=== PATIENT | male | born 1960 | race Hispanic/Latino ===

== ENCOUNTER → 2020-03-05 | Outpatient (CLI) | payer SELFPAY | LOC: M LABSMTC 13:33 | PROVIDERS: ATTEND Pediatrics | DX: Z20.828 Contact with and (suspected) exposure to other viral communicable diseases (principal) ==

== ENCOUNTER → 2020-09-29 | Outpatient (CLI) | payer OTHER ==
--- NOTE | 2020-10-02 16:31 | SLEEPCENT ---
NOCTURNAL POLYSOMNOGRAPHY DATE: 09/29/2020 ORDERED BY: TONEY Marquez Nocturnal polysomnography was performed for evaluation of sleep physiology in this patient with a history suggesting obstructive sleep apnea syndrome. 8 hours and 4 minutes of data were reviewed. There were 422 minutes of sleep identified. Sleep latency was short at 2 minutes. REM latency was mildly delayed at 150 minutes. Sleep architecture improved late in the study with significant fragmentation early and three REM cycles were noted. Overall sleep efficiency was 88.7%. The electrocardiogram showed a sinus rhythm with an average heart rate of 68 beats per minute; rate range 50 to 80 beats per minute. EEG showed normal waveforms for wake and sleep. No focal events were identified. There were 217 respiratory events identified of 10 seconds in duration or greater for an apnea-hypopnea index of 30.9. The events were primarily obstructive, not exclusive to sleep stage, more frequent but not exclusive to the supine posture. Arousals from respiratory events occurred 6.7 times per hour and oxygen desaturations were seen into the 80ss. There was some minor limb activity and remaining measures of sleep physiology were normal. IMPRESSION: Obstructive sleep apnea syndrome (G47.33), apnea-hypopnea index 30.9. RECOMMENDATION: The patient should be encouraged to return to [facility]. In the interim, alcohol and sedative avoidance should be practiced and caution exercised during the operation of motor vehicles.
== END ==
LOC: M SLEEP 20:00
PROVIDERS: ATTEND Nurse Practitioner Family
DX: G47.33 Obstructive sleep apnea (adult) (pediatric) (principal)

== ENCOUNTER → 2021-04-10 | Outpatient (CLI) | payer OTHER | LOC: M RAD 10:14 | PROVIDERS: ATTEND Nurse Practitioner Family | DX: Z87.891 Personal history of nicotine dependence (principal) ==

== ENCOUNTER 2022-09-30 10:37 | Emergency (ER) | payer OTHER ==
[~2022-09-30] VITALS: Ht 167.6 cm; Wt 68.2 kg
[2022-09-30] MEDS ORDERED: ALBU90AE (10:48)
[2022-09-30] MEDS ORDERED: MELO15TA28 PO (10:49)
[2022-09-30 12:22] LABS: BASO # 0.1 10^3/uL (0.0-0.2); BASO % 1.3 % (0.0-1.0); EOS # 0.4 10^3/uL (0.0-0.5); EOS % 6.1 % (0.0-3.0); HEMATOCRIT 47.2 % (42.0-52.0); HEMOGLOBIN 16.3 g/dl (13.5-17.5); LYMPH # 2.3 10^3/uL (1.5-5.0); LYMPH % 33.7 % (24.0-44.0); MEAN CORPUSCULAR HEMOGLOBIN 29.6 pg (27.0-33.0); MEAN CORPUSCULAR HGB CONC 34.5 g/dl (32.0-36.5); MEAN CORPUSCULAR VOLUME 85.7 fl (80.0-96.0); MONO # 0.5 10^3/uL (0.0-0.8); MONO % 7.5 % (2.0-8.0); NEUTROPHILS # 3.4 10^3/uL (1.5-8.5); NEUTROPHILS % 51.4 % (36.0-66.0); PLATELET COUNT, AUTOMATED 252 10^3/uL (150-450); RED BLOOD COUNT 5.51 10^6/uL (4.30-6.10); WHITE BLOOD COUNT 6.7 10^3/uL (4.0-10.0)
[2022-09-30] MEDS ORDERED: methylPREDNISolone 125MG 2ML VIAL IV ONE (12:35)
[2022-09-30] MEDS ORDERED: IPRATROPIUM 0.5MG/ALBUTEROL 2.5MG INH SOL UD 3ML (DUONEB) NEB ONE (12:35)
[2022-09-30 12:46] LABS: ALBUMIN 4.1 G/DL (3.2-5.2); ALKALINE PHOSPHATASE 84 U/L (46-116); ALT/SGPT 27 U/L (7.0-40); AST/SGOT 17 U/L (<34); BILIRUBIN,DIRECT 0.2 MG/DL (<0.4); BILIRUBIN,TOTAL 0.7 MG/DL (0.3-1.2); BLOOD UREA NITROGEN 11 MG/DL (9-23); CALCIUM LEVEL 9.6 MG/DL (8.3-10.6); CARBON DIOXIDE LEVEL 25 MMOL/L (20-31); CHLORIDE LEVEL 108 MMOL/L (98-107); CREATININE FOR GFR 0.77 MG/DL (0.70-1.30); GLOMERULAR FILTRATION RATE > 60.0 (>49); GLUCOSE, FASTING 86 MG/DL (74-106); POTASSIUM SERUM 4.3 MMOL/L (3.5-5.1); SODIUM LEVEL 139 MMOL/L (136-145); TOTAL PROTEIN 7.2 G/DL (5.7-8.2)
[2022-09-30 12:55] LABS: RSV AMPLIFICATION NEGATIVE (NEGATIVE)
[2022-09-30 13:14] LABS: PROTHROMBIN TIME 12.3 SECONDS (12.5-14.5)
[2022-09-30 13:15] LABS: PARTIAL THROMBOPLASTIN TIME 30.7 SECONDS (24.8-34.2)
[2022-09-30] MEDS ORDERED: ISOVUE-370 76% 100ML VIAL As Ordered ONE (13:17)
[2022-09-30 13:28] LABS: D-DIMER QUANT < 270 ng/ml (<500)
[2022-09-30] MEDS ORDERED: ALBUTEROL SULFATE 2.5MG/0.5ML INH NEB SOLN NEB ONE (13:55)
[2022-09-30 14:05] LABS: CK-MB VALUE MASS 1.2 NG/ML (<3.6)
[2022-09-30 14:13] LABS: CPK CREATINE PHOSPHOKINASE 217 U/L (46-171); MB/CK RELATIVE INDEX 0.55 (< OR =4)
[2022-09-30] MEDS: MAG SULF 1GM/100ML (MAG RUN) 1 GM in IV 1 EA IV SCH ×2 (14:24→15:18)
[2022-09-30] MEDS ORDERED: PRED20TA PO (15:24)
[2022-09-30] MEDS ORDERED: ALBU2.5V10 NEB (15:33)
[2022-09-30 16:10] VITALS: BP 106/57; TEMP 98.5; O2SAT 97
== END 2022-09-30 16:20 | disposition home or self-care (01) ==
LOC: M ED 10:37
DX: J45.901 Unspecified asthma with (acute) exacerbation (principal); K76.89 Other specified diseases of liver; G47.33 Obstructive sleep apnea (adult) (pediatric); F17.200 Nicotine dependence, unspecified, uncomplicated; Z88.8 Allergy status to other drugs, medicaments and biological substances; Z79.899 Other long term (current) drug therapy
CPT/HCPCS: 71045; 71275; 80048; 80076; 82550; 82553; 84484; 85025; 85379; 85610; 85730; 87631; 93005; 94640; 96365; 96375; 99284; J2930; J3475; Q9967

== ENCOUNTER → 2022-11-04 | Outpatient (CLI) | payer OTHER ==
[~2022-11-04] MED LIST: ALBU2.5V10 NEB; ALBU90AE; MELO15TA28 PO; PRED20TA PO
== END ==
LOC: M PLAIMG 06:44
PROVIDERS: ATTEND Nurse Practitioner Family
DX: R93.89 Abnormal findings on diagnostic imaging of other specified body structures (principal)

== ENCOUNTER → 2023-05-19 | Outpatient (CLI) | payer OTHER | LOC: M RAD 13:20 | PROVIDERS: ATTEND Nurse Practitioner Family | DX: Z87.891 Personal history of nicotine dependence (principal) ==

== ENCOUNTER 2023-08-17 10:55 | Emergency (ER) | payer OTHER ==
[~2023-08-17] VITALS: Ht 167.6 cm; Wt 64.9 kg
[2023-08-17 12:04] LABS: BASO # 0.1 10^3/uL (0.0-0.2); EOS # 0.3 10^3/uL (0.0-0.5); EOS % 4.8 % (0.0-3.0); HEMATOCRIT 45.6 % (42.0-52.0); HEMOGLOBIN 15.7 g/dl (13.5-17.5); LYMPH # 2.7 10^3/uL (1.5-5.0); LYMPH % 38.9 % (24.0-44.0); MEAN CORPUSCULAR HGB CONC 34.4 g/dl (32.0-36.5); MEAN CORPUSCULAR VOLUME 87.2 fl (80.0-96.0); MONO # 0.6 10^3/uL (0.0-0.8); MONO % 8.2 % (2.0-8.0); NEUTROPHILS # 3.3 10^3/uL (1.5-8.5); PLATELET COUNT, AUTOMATED 246 10^3/uL (150-450); RED BLOOD COUNT 5.23 10^6/uL (4.30-6.10); WHITE BLOOD COUNT 7.1 10^3/uL (4.0-10.0)
[2023-08-17 12:36] LABS: ALBUMIN 3.7 G/DL (3.2-5.2); ALKALINE PHOSPHATASE 85 U/L (46-116); ALT/SGPT 27 U/L (7.0-40); AST/SGOT 16 U/L (<34); BILIRUBIN,DIRECT 0.2 MG/DL (<0.4); BILIRUBIN,TOTAL 0.6 MG/DL (0.3-1.2); BLOOD UREA NITROGEN 10 MG/DL (9-23); CALCIUM LEVEL 8.4 MG/DL (8.3-10.6); CARBON DIOXIDE LEVEL 27 MMOL/L (20-31); CHLORIDE LEVEL 108 MMOL/L (98-107); CK-MB VALUE MASS 1.6 NG/ML (<3.6); CPK CREATINE PHOSPHOKINASE 228 U/L (46-171); CREATININE FOR GFR 0.89 MG/DL (0.70-1.30); GLOMERULAR FILTRATION RATE > 60.0 (>49); GLUCOSE, FASTING 91 MG/DL (74-106); SODIUM LEVEL 140 MMOL/L (136-145); TOTAL PROTEIN 6.2 G/DL (5.7-8.2)
[2023-08-17 12:38] LABS: THYROXINE (T4) 9.3 UG/DL (4.5-10.9)
[2023-08-17 12:39] LABS: THYROID STIMULATING HORMONE 0.438 uIU/ML (0.55-4.78)
[2023-08-17] MEDS: methylPREDNISolone 40MG 1ML VIAL IV ONE (16:19)
[2023-08-17] MEDS: IPRATROPIUM 0.5MG/ALBUTEROL 2.5MG INH SOL UD 3ML (DUONEB) NEB ONE (16:22)
[2023-08-17] MEDS ORDERED: PRED20TA PO (16:54)
[2023-08-17] MEDS ORDERED: ALBU2.5V10 NEB (16:54)
[2023-08-17] MEDS ORDERED: ALBU90AE INH (16:54)
[2023-08-17 17:07] VITALS: BP 141/80; TEMP 97; O2SAT 98
== END 2023-08-17 17:11 | disposition home or self-care (01) ==
LOC: M ED 10:55
DX: J45.901 Unspecified asthma with (acute) exacerbation (principal); R07.89 Other chest pain; R94.31 Abnormal electrocardiogram [ECG] [EKG]; Z88.8 Allergy status to other drugs, medicaments and biological substances; Z79.51 Long term (current) use of inhaled steroids; Z79.52 Long term (current) use of systemic steroids; Z79.899 Other long term (current) drug therapy
CPT/HCPCS: 71046; 80048; 80076; 82550; 82553; 83880; 84436; 84443; 84484; 85025; 87486; 87581; 87633; 87798; 93005; 94640; 96374; 99283; J2919

== ENCOUNTER → 2024-11-08 | Outpatient (CLI) | payer OTHER ==
[~2024-11-08] MED LIST changes: -ALBU90AE; +ALBU90AE2; +ALBU90AE2 INH; +IPRA0.00 INH
== END ==
LOC: M RAD 07:41
PROVIDERS: ATTEND Nurse Practitioner Family
DX: Z12.2 Encounter for screening for malignant neoplasm of respiratory organs (principal); F17.219 Nicotine dependence, cigarettes, with unspecified nicotine-induced disorders; R93.3 Abnormal findings on diagnostic imaging of other parts of digestive tract